=== PATIENT | male | born 1945 | race African-American/Black ===

== ENCOUNTER 2017-12-04 13:32 | Emergency (ER) | payer OTHER ==
[2017-12-04 13:38] VITALS: BP 149/79; TEMP 97.2; BMI 30.4
[2017-12-04] MEDS ORDERED: TORADOL IM STA (15:11)
--- NOTE | 2017-12-04 15:11 | ED.PDOC ---
General ED Provider: Dr. CURTIS MASON Chief Complaint: Foot Pain/Injury Stated Complaint: C/O Rt foot is hurting. Indicates that he awakened this morning with pain. States hurting from bottom to rt side. No know hx injury.Denies hx of gout. Time Seen by Physician: 14:40 Mode of Arrival: Wheelchair Information Source: Patient Exam Limitations: No limitations Nursing and Triage Documentation Reviewed and Agree: Yes Does patient meet sepsis criteria?: No System Inflammatory Response Syndrome: Not Applicable Sepsis Protocol: For patient's 13 years and over: Temp is 96.8 and below OR 101 and greater Pulse >90 BPM Resp >20/minute Acutely Altered Mental Status Are patient's symptoms suggestive of a new infection, such as: -Pneumonia -Skin, Soft Tissue -Endocarditis -UTI -Bone, Joint Infection -Implantable Device -Acute Abdominal Infection -Wound Infection -Meningitis -Blood Stream Catheter Infection -Unknown Musculoskeletal Complaint Exam - Ankle/Foot Complaint/Exam Location of Injury: Reports: Right, Foot Mechanism of Injury: Reports: No known trauma Onset/Duration: This AM Symptoms Are: Reports: Still present Onset of Pain: Reports: Immediate Initial Severity: Moderate Current Severity: Moderate Location: Reports: Radiating Character: Reports: Sharp, Aching Alleviating: Reports: Rest Aggravating: Reports: Movement, Weight bearing Able to Bear Weight: Yes (with diffiulty) Associated Signs and Symptoms: Reports: Swelling (with tenderness to palpation over mid plantar surface to lateral surface of foot) Related History: Denies: Similar episode Gout Risk Factors: Reports: >40 years old, Male, HTN, Renal Disease, Hyperlipidemia Lower Extremity Findings: Present: Swelling, Tenderness (mid plantar surface. Specifically no involvement of distal metatarsal region or 1st mtp joint) Achilles Tendon Abnormality: No Differential Diagnosis: Cellulitis, Contusion, Closed Fracture, Gout, Strain Review of Systems - Review Of Systems Constitutional: Reports: No symptoms Eyes: Reports: No symptoms Ears, Nose, Mouth, Throat: Reports: No symptoms Respiratory: Reports: No symptoms Cardiac: Reports: No symptoms GI: Reports: No symptoms : Reports: No symptoms Musculoskeletal: Reports: Muscle stiffness, Other (Rt foot pain) Skin: Reports: No symptoms Neurological: Reports: No symptoms Endocrine: Reports: No symptoms Hematologic/Lymphatic: Reports: No symptoms All Other Systems: Reviewed and Negative Past Medical History - Past Medical History Previously Healthy: No Endocrine: Reports: DM 2, Dyslipidemia Cardiovascular: Reports: CAD, Hypertension, Other (asvd) Respiratory: Reports: None Hematological: Reports: Anemia Gastrointestinal: Reports: GERD Genitourinary: Reports: None Neuro/Psych: Reports: None Musculoskeletal: Reports: Back Pain, Joint Pain Cancer: Reports: None - Surgical History General Surgical History: Reports: Unknown - Family History Family History: Reports: Unknown - Social History Smoking Status: Never smoker Hx Substance Use: No Alcohol Screening: None Physical Exam - Physical Exam Appearance: Well-appearing, No pain distress, Well-nourished Eyes: ISADORA, EOMI, Conjunctiva clear ENT: Ears normal, Nose normal, Oropharynx normal Respiratory: Airway patent, Breath sounds clear, Breath sounds equal, Respirations nonlabored Cardiovascular: RRR, Pulses normal, No rub, No murmur GI/: Soft, Nontender, No masses, Bowel sounds normal, No Organomegaly Musculoskeletal: Normal strength (Rt foot tenderness), ROM intact, No edema, No calf tenderness Skin: Warm, Dry, Normal color Neurological: Sensation intact, Motor intact, Reflexes intact, Cranial nerves intact, Alert, Oriented Psychiatric: Affect appropriate, Mood appropriate Interpretation - Radiology Interpretation Radiology Interpretation By: Radiologist Radiology Results: Positive (anterolateral and plantar soft tissue swelling-) Critical Care Note - Critical Care Note Total Time (mins): 0 Course - Course Hematology/Chemistry: 12/04/17 15:24 12/04/17 15:24 Orders, Labs, Meds: Lab Review 12/04/17 12/04/17 15:24 15:24 WBC 9.44 RBC 3.76 L Hgb 10.8 L Hct 31.5 L MCV 83.8 MCH 28.7 MCHC 34.3 RDW Coeff of Zhane 14.7 Plt Count 254 Immature Gran % (Auto) 0.3 Neut % (Auto) 40.8 Lymph % (Auto) 44.8 Leslie % (Auto) 9.9 Eos % (Auto) 3.9 Baso % (Auto) 0.3 Immature Gran # (Auto) 0.0 Neut # (Auto) 3.9 Lymph # (Auto) 4.2 H Leslie # (Auto) 0.9 Eos # (Auto) 0.4 Baso # (Auto) 0.0 Sodium 138.0 Potassium 5.16 H Chloride 101.6 Carbon Dioxide 28.4 Anion Gap 13.16 BUN 22.6 H Creatinine 1.55 H Estimated GFR (MDRD) 54.00 BUN/Creatinine Ratio 14.58 Glucose 117.4 H Uric Acid 9.85 H Calcium 9.67 Total Bilirubin 0.27 AST 31.6 ALT 13.4 Alkaline Phosphatase 80.8 Total Protein 7.92 Albumin 4.46 Globulin 3.46 Albumin/Globulin Ratio 1.28 Orders Category Date Time Status CBC W/ AUTO DIFF Stat LAB 12/04/17 15:24 Completed CMP [COMPREHENSIVE METABOLIC PANEL] Stat LAB 12/04/17 15:24 Completed URIC ACID Stat LAB 12/04/17 15:24 Completed Ketorolac Tromethamine [Toradol] MEDS 12/04/17 15:11 Discontinued 30 mg IM ONCE STA CT FOOT RIGHT WITHOUT CONTRAST Stat RADS 12/04/17 15:13 Completed Medications Discontinued Medications Generic Name Dose Route Start Last Admin Trade Name Freq PRN Reason Stop Dose Admin Ketorolac Tromethamine 30 mg 12/04/17 15:11 12/04/17 15:43 Toradol IM 12/04/17 15:12 30 mg ONCE STA Administration Vital Signs: Temp Pulse Resp BP Pulse Ox 12/04/17 13:33 97.2 F L 68 20 149/79 H 95 Departure - Departure Time of Disposition: 18:00 Disposition: HOME SELF-CARE Discharge Problem: Plantar fasciitis of right foot, 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 Has know hx CKD with elevated BUN/Creat and GFR to 54. Do not recommend NSAID or uric acid inhibitors due to reduced GFR. Recommend follow up with PCP for additional metabolic evaluation/renal evaluation. Take Worton for pain control Prescriptions: Hydrocodone Bit/Acetaminophen [Worton 5-325] 1 each PO Q4HR PRN #15 tablet PRN Reason: Foot pain Allergies/Adverse Reactions: Allergies meperidine [From Demerol] Adverse Reaction (Verified 12/04/17 13:39) Home Medications: Ambulatory Orders Atorvastatin Calcium [Lipitor] 20 mg PO DAILY 12/04/17 Carvedilol 25 mg PO BID 12/04/17 Clopidogrel Bisulfate [Plavix] 75 mg PO DAILY 12/04/17 Divalproex Sodium [Depakote] 125 mg PO TID 12/04/17 Finasteride [Proscar] 5 mg PO DAILY 12/04/17 Glimepiride [Amaryl] 2 mg PO DAILY 12/04/17 Hydralazine HCl 25 mg PO TID 12/04/17 Hydralazine HCl 50 mg PO TID 12/04/17 Hydrocodone Bit/Acetaminophen [Worton 5-325] 1 each PO Q4HR PRN #15 tablet Levothyroxine Sodium [Synthroid] 75 mcg PO DAILY 12/04/17 Metformin HCl 500 mg PO BID 12/04/17 Oxybutynin Chloride [Ditropan] 5 mg PO BID 12/04/17 Ranitidine HCl [Zantac] 150 mg PO ONCE 12/04/17 Tamsulosin HCl [Flomax] 0.4 mg PO DAILY 12/04/17 Disposition Discussed With: Patient
--- NOTE | 2017-12-04 16:10 | CT ---
Exam: CT of the foot without intravenous contrast. Comparison: None available. Reason for exam: Pain. FINDINGS: Soft tissue swelling is seen in the anterior lateral foot soft tissues best seen on sagitt al image number 11. No acute fracture or dislocation. Chronic appearing, well marginated osseous de nsity in the midfoot adjacent to the calcaneus. Inflammatory changes are seen in the lateral and say ntar soft tissues. Impression: 1. No obvious fracture is seen on the exam. Recommend correlation with radiographs. 2. Soft tissue swelling in the anterior lateral lateral and plantar soft tissues. These findings ca n be seen with cellulitis, infection, trauma and edema. Recommend correlation with patient's history . If clinical concern exists for osteomyelitis, MRI may be performed.
== END 2017-12-04 18:30 | disposition home or self-care (01) ==
LOC: ED 13:32
DX: M72.2 Plantar fascial fibromatosis (principal); E79.0 Hyperuricemia without signs of inflammatory arthritis and tophaceous disease; R94.4 Abnormal results of kidney function studies; N18.3 Chronic kidney disease, stage 3 (moderate); D63.1 Anemia in chronic kidney disease; I10 Essential (primary) hypertension; E78.5 Hyperlipidemia, unspecified; E11.9 Type 2 diabetes mellitus without complications; I25.10 Atherosclerotic heart disease of native coronary artery without angina pectoris; Z79.899 Other long term (current) drug therapy
CPT/HCPCS: 36415; 80053; 84550; 85025; 96372; 99283